=== PATIENT | male | born 1960 | race Caucasian/White ===

== ENCOUNTER 2017-12-01 06:22 | Day surgery (SDC) | payer BC ==
[2017-11-21 11:28] VITALS: BMI 27.6
[2017-12-01 06:59] VITALS: O2SAT 100
[2017-12-01] MEDS ORDERED: Propofol 10 mg/ml Inj (20 ML) ONE (08:57)
[2017-12-01] MEDS ORDERED: Lidocaine Hydrochloride 5 ML INJ ONE (08:57)
[2017-12-01 10:15] VITALS: BP 144/80; PULSE 15; RESP 18; TEMP 81
== END 2017-12-01 10:13 | disposition home or self-care (01) ==
LOC: C.ENDO 06:22
PROVIDERS: ATTEND Internal Medicine Gastroenterology
DX: K64.8 Other hemorrhoids (principal)
CPT/HCPCS: 45378; 82948; J2704